=== PATIENT | male | born 1975 | race Caucasian/White ===

== ENCOUNTER 2020-07-22 05:43 | Day surgery (SDC) | payer OTHER ==
[~2020-07-22] VITALS: Ht 180.3 cm; Wt 94.5 kg
[~2020-07-22 05:43] MED LIST: ALLEGRA ALLERG180 MG PO; PRILOSEC OTC20 MG PO; PROPRANOLOL HCL80 MG PO; SERTRALINE HCL100 MG PO; TOPIRAMATE100 MG PO
--- NOTE | 2020-07-22 08:42 | NUR ---
PT ALERT, ORIENTED AND RESTING QUIETLY IN RM-PREPARING MENTALLY FOR SURGERY. PT SEEMS SOMEWHAT ANXIOUS, SPENT TIME ENCOURAGING. PT MENTIONED DEPENDING ON TIME OF DC ONE OF HIS FAMILY WILL BE BY TO TAKE HIM HOME. PT ALSO MENTIONED HE HAS BEEN SUFFERING WITH THIS FOR YEARS-TIME TO GET IT TAKEN CARE OF. PT REQUESTED PRAYER, WILL FOLLOW
[2020-07-22] MEDS ORDERED: DICLOFENAC SODI75 MG PO (10:28)
[2020-07-22] MEDS ORDERED: HYDROCODON-ACE1 EA11 PO (10:29)
--- NOTE | 2020-07-22 10:29 | NUR ---
07/22/20 1029 Sheets,Marine 1024 PT ARRIVED TO PACU ON 6L VIA MASK, PT ASLEEP AND RESP EVEN AND UNLABORED. VSS. PT NONAROUSABLE TO TACTILE STIMULI.
--- NOTE | 2020-07-22 11:00 | NUR ---
ICED WATER, APPLESAUCE AND CRACKERS ARE GIVEN. CALL LIGHT IS WITHIN REACH.
--- NOTE | 2020-07-22 12:37 | NUR ---
LE 1155: PATIENT IS UP TO THE BATHROOM WITH MY STANDBY ASSIST. PATIENT AMBULATES WELL AND DENIES DIZZINESS. HE VOIDS AND IS BACK IN HIS ROOM. DISCHARGE INSTRUCTIONS ARE GIVEN. HE IS ASSISTED DRESSED BY ME. HE IS CALLING HIS RIDE. INSTRUCTIONS ARE PROVIDED WITH REGARD TO THE CRYO CUFF AND HE VERBALIZES UNDERSTANDING. PATIENT TRANSFERS HIMSELF TO THE WHEELCHAIR AND THEN TO HIS PERSONAL VEHICLE AND HE IS DISCHARGED HOME.
--- NOTE | 2020-07-23 07:41 | OR ---
[facility] [address], [place] [address] Signed DATE OF OPERATION: 07/22/2020 SURGEON: Poly Savage MD PREOPERATIVE DIAGNOSIS: SLAP tear, right shoulder. POSTOPERATIVE DIAGNOSIS: Type 3 SLAP tear, right shoulder with partial rotator cuff tear. PROCEDURE PERFORMED: Right shoulder arthroscopy with debridement, rotator cuff tear and anterior-superior labral repair. VARNISH INSPECTOR: None. ANESTHESIA: General. ESTIMATED BLOOD LOSS: Minimal. IMPLANTS: One 2.9 PushLock with FiberLink. BRIEF HISTORY: Leander is a 45-year-old gentleman, who injured his shoulder, had persistent pain despite nonoperative management. Risks and benefits of operative treatment were discussed with him after MRI revealed a SLAP tear. DESCRIPTION OF PROCEDURE: Once consent was obtained, he was taken to the operating room. After adequate anesthesia, he was placed in the beach chair position. All downside pressure points well padded. The left arm was placed in well-padded arm davis. The right was prepped and draped in a standard sterile fashion. The shoulder was injected with 15 mL of 0.25% Marcaine with epinephrine as was subacromial space. Standard posterior portal was made and the scope was introduced into the shoulder. Arthroscopic Findings: Moderate synovitis was noted anteriorly. The biceps was intact. Electronically Signed By: POLY SAVAGE MD 07/23/20 0741 PATIENT NAME: LEANDER MAO OPERATIVE REPORT DATE OF : 71 REPORT #: [id number] PHYSICIAN: POLY SAVAGE MD PCP: MARIAN GUILLERMO REPORT IS CONFIDENTIAL AND NOT TO BE RELEASED WITHOUT AUTHORIZATION [facility] [address], [place] [address] Signed The biceps anchor showed a type 3 SLAP tear with extension into the base of the labrum anterosuperiorly. The inferior labrum was intact. Rotator cuff was intact with some moderate partial tearing on the articular surface posteriorly. The glenohumeral surfaces were intact. The subscapularis was intact. Standard anterior portal was made using an outside-in technique. The labral tear was debrided and evaluated. There was an unstable portion of the anterior-superior corner extending posteriorly a little bit. This was felt to be something that would warrant repair. The undersurface of the rotator cuff was debrided down to bleeding surface. There was probably 10% tear in the infraspinatus. The glenoid rim was then cleaned of soft tissue and abraded using the red rasp. The suture passer was then placed through the labrum and the FiberLink was placed around this and lassoed. The 2.98 anchor was then placed was then drilled in the center of the lesion on the glenoid rim. The anchor was placed and the suture was tensioned appropriately. The anchor was driven home. The suture ends were cut off. The labrum was quite stable at the end of the procedure. The water was turned off. There was excellent bleeding at the repair site. The scope was then withdrawn, portals closed with 3-0 nylon and dressed with Acticoat dressings. He tolerated the procedure well. All sponge, needle, and instrument counts were correct. Poly Savage MD BA/MODL /[id number] Copies: ~ Electronically Signed By: POLY SAVAGE MD 07/23/20 0741 PATIENT NAME: LEANDER MAO OPERATIVE REPORT DATE OF : 71 REPORT #: [id number] PHYSICIAN: POLY SAVAGE MD PCP: MARIAN GUILLERMO REPORT IS CONFIDENTIAL AND NOT TO BE RELEASED WITHOUT AUTHORIZATION
== END 2020-07-22 12:25 | disposition home or self-care (01) ==
LOC: DS 05:43
PROVIDERS: ATTEND Specialist
PROC: 0RQJ4ZZ Repair Right Shoulder Joint, Percutaneous Endoscopic Approach (ICD-10-PCS; 2020-07-22)
PROC: 3E0T3BZ Introduction of Anesthetic Agent into Peripheral Nerves and Plexi, Percutaneous Approach (ICD-10-PCS; 2020-07-22)
PROC: 0MM14ZZ Reattachment of Right Shoulder Bursa and Ligament, Percutaneous Endoscopic Approach (ICD-10-PCS; 2020-07-22)
PROC: 0LQ14ZZ Repair Right Shoulder Tendon, Percutaneous Endoscopic Approach (ICD-10-PCS; principal; 2020-07-22 06:45)
DX: M75.111 Incomplete rotator cuff tear or rupture of right shoulder, not specified as traumatic (principal); S43.431A Superior glenoid labrum lesion of right shoulder, initial encounter; M65.811 Other synovitis and tenosynovitis, right shoulder; G89.18 Other acute postprocedural pain; Y93.79 Activity, other specified sports and athletics; X58.XXXA Exposure to other specified factors, initial encounter; Z79.899 Other long term (current) drug therapy
CPT/HCPCS: 00450; 64415; 76942; C1713; J0690; J1100; J2001; J2250; J2405; J2795; J7121